=== PATIENT | male | born 1975 | race African-American/Black ===

== ENCOUNTER 2017-04-25 14:45 | Emergency (ER) | payer BC ==
[~2017-04-25] VITALS: Ht 175.3 cm; Wt 99.8 kg
[2017-04-25] MEDS ORDERED: ONDANSETRON PF 4 MG/2 ML VIAL. IV ONE (15:30)
[2017-04-25] MEDS ORDERED: IV NORMAL SALINE 1000ML BAG 1,000 ML IV ONE (15:30)
[2017-04-25] MEDS: fentaNYL PF VIAL 100 MCG/2 ML VIAL IV PRN ×2 (15:33→16:37)
[2017-04-25 15:40] LABS: BASO # 0.1 x10^3/uL (0.0-0.2); BASO % 1 % (0-3); EOS % 1 % (0-3); HEMATOCRIT 45.8 % (39.0-53.0); HEMOGLOBIN 15.1 g/dL (13.0-17.5); LYMPH # 2.1 x10^3/uL (1.0-4.8); LYMPH % 19 % (24-48); MEAN CORPUSCULAR HEMOGLOBIN 32 pg (25-35); MEAN CORPUSCULAR HGB CONC 33 g/dL (31-37); MEAN CORPUSCULAR VOLUME 96 fL (79-100); MONO % 10 % (0-9); NEUT % 70 % (31-73); PLATELET COUNT 245 x10^3/uL (140-400); RED BLOOD COUNT 4.78 x10^6/uL (4.30-5.70); RED CELL DISTRIBUTION WIDTH 13.2 % (11.5-14.5); WHITE BLOOD COUNT 11.1 x10^3/uL (4.0-11.0)
[2017-04-25 15:46] LABS: CALCIUM 9.3 mg/dL (8.5-10.1); CREATININE 1.1 mg/dL (0.7-1.3); GFR 88.8; POTASSIUM 3.9 mmol/L (3.5-5.1)
[2017-04-25 15:52] LABS: ALBUMIN 3.9 g/dL (3.4-5.0); TOTAL BILIRUBIN 0.4 mg/dL (0.2-1.0); TOTAL PROTEIN 7.7 g/dL (6.4-8.2)
[2017-04-25] MEDS ORDERED: IOHEXOL 300 MG/ML 75 ML VIAL IV ONE (16:30)
[2017-04-25] MEDS ORDERED: CONTRAST GIVEN MC PRN (16:30)
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
[2017-04-25] MEDS ORDERED: CYCL5TAB PO (17:31)
[2017-04-25] MEDS ORDERED: ONDA4TAB10 SL (17:31)
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
[2017-04-25 17:47] VITALS: BP 170/91
--- NOTE | 2017-04-26 13:41 | EKG ---
[facility] [address] [place] [id number] Test Date: 2017-04-25 Test Time: 15:01:32 Pat Name: CHANO MOODY Department: Room: Gender: M [employer]: : 1975 Requested By: TABBY BECERRA Order Number: [id number] Reading MD: Anali Warner Measurements Intervals Gallagher Rate: 69 P: 39 KS: 176 QRS: -43 QRSD: 90 T: 14 QT: 378 QTc: 406 Interpretive Statements SINUS RHYTHM ATRIAL PREMATURE COMPLEX(ES LEFT ANTERIOR FASCICULAR BLOCK INCOMPLETE RIGHT BUNDLE BRANCH BLOCK ABNORMAL ECG Electronically Signed On 04-26-2017 17:00:37 CDT by Anali Warner
== END 2017-04-25 17:57 | disposition home or self-care (01) ==
LOC: ER 14:45
DX: S02.2XXA Fracture of nasal bones, initial encounter for closed fracture (principal); S09.90XA Unspecified injury of head, initial encounter; S00.511A Abrasion of lip, initial encounter; S30.811A Abrasion of abdominal wall, initial encounter; M54.2 Cervicalgia; F41.9 Anxiety disorder, unspecified; J45.909 Unspecified asthma, uncomplicated; F31.9 Bipolar disorder, unspecified; K21.9 Gastro-esophageal reflux disease without esophagitis; F17.200 Nicotine dependence, unspecified, uncomplicated; Y04.0XXA Assault by unarmed brawl or fight, initial encounter; Y93.89 Activity, other specified; Y92.89 Other specified places as the place of occurrence of the external cause; Y99.8 Other external cause status
CPT/HCPCS: 36415; 70450; 70486; 72125; 74177; 80053; 85025; 93005; 96361; 96374; 96375; 96376; 99285; G0480; J2405; J3010; J7030; Q9967

== ENCOUNTER 2020-12-05 02:23 | Emergency (ER) | payer SELFPAY ==
[~2020-12-05 02:23] MED LIST: CYCL5TAB PO; ONDA4TAB10 SL
[2020-12-05] MEDS ORDERED: ZIPRASIDONE 20 MG CAPSULE PO STA (08:15)
[2020-12-05] MEDS ORDERED: ZIPRASIDONE IM 20 MG VIAL. IM ONE (08:15)
[2020-12-05 08:29] LABS: BARBITURATES NEG (NEG); BENZODIAZEPINES NEG (NEG); CALCIUM 8.6 mg/dL (8.5-10.1); CANNABINOIDS NEG (NEG); COCAINE POS (NEG); CREATININE 1.2 mg/dL (0.7-1.3); GFR 78.9; METHADONE NEG (NEG); OPIATES NEG (NEG); PHENCYCLIDINE POS (NEG); POTASSIUM 3.6 mmol/L (3.5-5.1)
[2020-12-05 08:30] LABS: AMPHETAMINE/METHAMPHETAMINE NEG (NEG)
[2020-12-05 09:23] LABS: COLOR,URINE YELLOW
[2020-12-05 09:24] LABS: CLARITY,URINE CLEAR
[2020-12-05 09:43] LABS: BILIRUBIN,URINE NEGATIVE (NEG); PH,URINE 5.5 (<5.0-8.0)
[2020-12-05 09:44] LABS: BACTERIA,URINE 0 /HPF (0-FEW); NITRITE,URINE NEGATIVE (NEG); PROTEIN,URINE NEGATIVE (NEG-TRACE); RBC,URINE 0 /HPF (0-2); UROBILINOGEN,URINE 0.2 mg/dL (0.2 mg/dL); WBC,URINE 0 /HPF (0-4)
[2020-12-05 09:46] LABS: BASO # 0.1 x10^3/uL (0.0-0.2); BASO % 1 % (0-3); EOS # 0.2 x10^3/uL (0.0-0.7); EOS % 2 % (0-3); HEMATOCRIT 42.1 % (39.0-53.0); HEMOGLOBIN 14.3 g/dL (13.0-17.5); LYMPH # 2.3 x10^3/uL (1.0-4.8); LYMPH % 24 % (24-48); MEAN CORPUSCULAR HEMOGLOBIN 32 pg (25-35); MEAN CORPUSCULAR HGB CONC 34 g/dL (31-37); MEAN CORPUSCULAR VOLUME 94 fL (79-100); MONO # 1.3 x10^3/uL (0.0-1.1); MONO % 14 % (0-9); NEUT # 5.6 x10^3/uL (1.8-7.7); NEUT % 59 % (31-73); PLATELET COUNT 229 x10^3/uL (140-400); RED BLOOD COUNT 4.47 x10^6/uL (4.30-5.70); RED CELL DISTRIBUTION WIDTH 13.6 % (11.5-14.5); WHITE BLOOD COUNT 9.5 x10^3/uL (4.0-11.0)
[2020-12-05 09:48] LABS: % LYMPHS 24 % (24-48); % SEGS 59 % (35-66)
[2020-12-05 09:49] LABS: % BASOS 1 % (0-3); % EOS 2 % (0-5); % MONOS 14 % (0-10); PLT ESTIMATE ADEQUATE (ADEQUATE)
[2020-12-05] MEDS ORDERED: HYDROcodone/APAP 5/325MG 1 TAB TABLET PO ONE (11:45)
== END 2020-12-05 13:37 ==
LOC: ER 02:23
DX: R45.851 Suicidal ideations (principal); Z20.822 Contact with and (suspected) exposure to COVID-19; F31.9 Bipolar disorder, unspecified; Z72.0 Tobacco use
CPT/HCPCS: 80048; 80307; 81001; 85007; 85025; 87426; 99285; G0480; U0003; U0005